=== PATIENT | female | born 1985 | race Caucasian/White ===

== ENCOUNTER 2020-05-07 18:01 | Outpatient (CLI) | payer OTHER, SELFPAY ==
[2020-05-07 18:22] LABS: Basophils Absolute Auto 0.03 K/mm3 (0.00-0.10); Basophils Percent Auto 0.3 % (0.0-1.0); Eosinophils Absolute Auto 0.13 K/mm3 (0.02-0.50); Eosinophils Percent Auto 1.3 % (1.0-6.0); Hematocrit 38.3 % (35.0-49.0); Immature Granulocyte Absolute 0.02 K/mm3 (0.00-0.00); Immature Granulocyte Percent A 0.2 % (0.0-0.0); Lymphocytes Absolute Auto 3.58 K/mm3 (1.10-4.50); Lymphocytes Percent Auto 34.5 % (18.0-42.0); Mean Corpuscular HGB Conc 33.9 g/dL (32.0-36.0); Mean Corpuscular Hemoglobin 29.6 pg (27.0-31.0); Mean Corpuscular Volume 87.2 fL (78.0-102.0); Mean Platelet Volume 10.3 fl (9.2-11.8); Monocytes Absolute Auto 0.68 K/mm3 (0.10-0.90); Monocytes Percent Auto 6.6 % (2.0-11.0); Neutrophils Absolute Auto 5.9 K/mm3 (1.7-7.2); Neutrophils Percent Auto 57.1 % (50.0-70.0); Platelet Count Result 249 K/mm3 (150-420); Red Blood Count 4.39 M/mm3 (4.20-5.40); Red Cell Distribution Width 11.9 % (11.6-14.4); White Blood Count 10.4 K/mm3 (4.8-10.8)
[2020-05-07 19:21] LABS: Alanine Aminotransferase 32 U/L (14-59); Albumin Level 3.7 g/dL (3.4-5.0); Alkaline Phosphatase 58 U/L (46-116); Anion Gap 8 mmol/L (8-16); Aspartate Amino Transferase 12 U/L (15-37); Bilirubin,Total 0.2 mg/dL (0.00-1.00); Blood Urea Nitrogen 17 mg/dL (7-18); Carbon Dioxide 27 mmol/L (21-32); Chloride 102 mmol/L (98-108); Estimated Glomerular Filt Rate 60; Free T3 2.22 pg/mL (2.18-3.98); Free T4 Free Thyroxine 0.94 ng/dL (0.76-1.46); Glucose 101 mg/dL (70-99); Magnesium 2.4 mg/dL (1.8-2.4); Osmolality Calculated 285 mOsm/kg (285-295); Potassium 4.4 mmol/L (3.5-5.1); Sodium 137 mmol/L (136-145); Thyroid Stimulating Hormone 1.09 uIU/mL (0.36-3.74); Total Protein 7.3 g/dL (6.4-8.2)
== END 2020-05-07 18:02 | disposition home or self-care (01) ==
LOC: CHSLAB 18:06
PROVIDERS: PCP Internal Medicine; Visit Provider Internal Medicine
DX: R00.2 Palpitations (principal)
CPT/HCPCS: 36415; 80053; 83735; 84439; 84443; 84481; 85025

== ENCOUNTER 2020-05-09 07:31 | Outpatient (CLI) | payer OTHER, SELFPAY ==
--- NOTE | 2020-05-12 16:12 | WPDHOLTEREM ---
Holter/Event Monitor Holter/Event Monitor Date of procedure: 05/09/20 Procedure Type: 24 hour holter monitor Indications: Palpitations Conclusion: 1. 24 hour holter monitor on 05/09/20. 2. Underlying rhythm is sinus rhythm. HR range 55-154 bpm; average HR 89 bpm. 3. There are 9,774 premature supraventricular complexes, 5 supraventricular couplets, 70 supraventricular bigeminy, 1,621 supraventricular trigeminy. No supraventricular tachycardia. 4. No premature ventricular complexes. No ventricular tachycardia. 5. No sinoatrial or atrioventricular blocks. No significant pauses greater than 2 seconds. 6. Patient reports symptoms of chest pressure which demonstrate sinus rhythm at 90 bpm.
== END 2020-05-09 07:32 | disposition home or self-care (01) ==
LOC: CHSCARD 07:33
PROVIDERS: PCP Internal Medicine; Visit Provider Internal Medicine
DX: R00.2 Palpitations (principal)
CPT/HCPCS: 93225; 93226

== ENCOUNTER 2021-04-07 14:28 | Outpatient (CLI) | payer OTHER, SELFPAY ==
[2021-04-07 14:50] LABS: Basophils Absolute Auto 0.03 K/mm3 (0.00-0.10); Basophils Percent Auto 0.3 % (0.0-1.0); Eosinophils Absolute Auto 0.23 K/mm3 (0.02-0.50); Hematocrit 42.8 % (35.0-49.0); Hemoglobin 14.2 g/dL (12.0-15.0); Immature Granulocyte Absolute 0.03 K/mm3 (0.00-0.00); Immature Granulocyte Percent A 0.3 % (0.0-0.0); Lymphocytes Absolute Auto 3.31 K/mm3 (1.10-4.50); Lymphocytes Percent Auto 29.4 % (18.0-42.0); Mean Corpuscular HGB Conc 33.2 g/dL (32.0-36.0); Mean Corpuscular Hemoglobin 28.7 pg (27.0-31.0); Mean Corpuscular Volume 86.6 fL (78.0-102.0); Mean Platelet Volume 9.9 fl (9.2-11.8); Monocytes Absolute Auto 0.86 K/mm3 (0.10-0.90); Monocytes Percent Auto 7.6 % (2.0-11.0); Neutrophils Absolute Auto 6.8 K/mm3 (1.7-7.2); Neutrophils Percent Auto 60.4 % (50.0-70.0); Platelet Count Result 247 K/mm3 (150-420); Red Blood Count 4.94 M/mm3 (4.20-5.40); Red Cell Distribution Width 11.9 % (11.6-14.4); White Blood Count 11.3 K/mm3 (4.8-10.8)
[2021-04-07 15:46] LABS: Free T4 Free Thyroxine 0.89 ng/dL (0.76-1.46); Magnesium 2.3 mg/dL (1.8-2.4); Thyroid Stimulating Hormone 0.88 uIU/mL (0.36-3.74)
== END 2021-04-07 14:29 | disposition home or self-care (01) ==
LOC: CHSLAB 14:32
PROVIDERS: PCP Internal Medicine; Visit Provider Internal Medicine Cardiovascular Disease
DX: R00.2 Palpitations (principal); I49.1 Atrial premature depolarization
CPT/HCPCS: 36415; 83735; 84439; 84443; 85025

== ENCOUNTER 2021-05-19 15:54 | Outpatient (CLI) | payer OTHER, SELFPAY ==
[2021-05-19 18:07] LABS: Influenza A QL RT-PCR Negative (Negative); Influenza B QL RT-PCR Negative (Negative); SARS-CoV-2 RNA PCR Positive (Negative)
== END 2021-05-19 15:55 | disposition home or self-care (01) ==
LOC: CHSLAB 15:57
PROVIDERS: PCP Internal Medicine; Visit Provider Internal Medicine
DX: U07.1 COVID-19 (principal)
CPT/HCPCS: 87502; C9803; U0003; U0005

== ENCOUNTER 2021-05-29 15:11 | Outpatient (CLI) | payer OTHER, SELFPAY ==
[2021-05-29 15:27] LABS: Basophils Absolute Auto 0.04 K/mm3 (0.00-0.10); Basophils Percent Auto 0.4 % (0.0-1.0); Eosinophils Absolute Auto 0.12 K/mm3 (0.02-0.50); Eosinophils Percent Auto 1.2 % (1.0-6.0); Hematocrit 40.3 % (35.0-49.0); Hemoglobin 13.5 g/dL (12.0-15.0); Immature Granulocyte Absolute 0.02 K/mm3 (0.00-0.00); Immature Granulocyte Percent A 0.2 % (0.0-0.0); Lymphocytes Absolute Auto 3.17 K/mm3 (1.10-4.50); Mean Corpuscular HGB Conc 33.5 g/dL (32.0-36.0); Mean Corpuscular Hemoglobin 28.9 pg (27.0-31.0); Mean Corpuscular Volume 86.3 fL (78.0-102.0); Mean Platelet Volume 9.8 fl (9.2-11.8); Monocytes Percent Auto 7.1 % (2.0-11.0); Neutrophils Absolute Auto 5.9 K/mm3 (1.7-7.2); Neutrophils Percent Auto 59.1 % (50.0-70.0); Platelet Count Result 254 K/mm3 (150-420); Red Blood Count 4.67 M/mm3 (4.20-5.40); Red Cell Distribution Width 12.3 % (11.6-14.4); White Blood Count 9.9 K/mm3 (4.8-10.8)
[2021-05-29 16:23] LABS: Alanine Aminotransferase 54 U/L (14-59); Albumin Level 3.5 g/dL (3.4-5.0); Alkaline Phosphatase 62 U/L (46-116); Anion Gap 12 mmol/L (8-16); Aspartate Amino Transferase 16 U/L (15-37); Bilirubin,Total 0.2 mg/dL (0.00-1.00); Blood Urea Nitrogen 16 mg/dL (7-18); Carbon Dioxide 26 mmol/L (21-32); Chloride 103 mmol/L (98-108); Estimated Glomerular Filt Rate > 60; Glucose 117 mg/dL (70-99); Osmolality Calculated 294 mOsm/kg (285-295); Potassium 4.1 mmol/L (3.5-5.1); Sodium 141 mmol/L (136-145); Total Protein 7.3 g/dL (6.4-8.2)
[2021-05-29 16:53] LABS: Hemoglobin A1C 5.6 % (<5.7)
== END 2021-05-29 15:12 | disposition home or self-care (01) ==
LOC: CHSLAB 15:14
PROVIDERS: PCP Internal Medicine; Visit Provider Internal Medicine
DX: H66.90 Otitis media, unspecified, unspecified ear (principal); R73.01 Impaired fasting glucose
CPT/HCPCS: 36415; 80053; 83036; 85025

== ENCOUNTER 2021-06-26 07:13 | Outpatient (CLI) | payer OTHER, SELFPAY ==
--- NOTE | 2021-06-26 07:40 | ECHO_ITS ---
Patient Info Name: Aide Alves Age: 36 years : 1985 Gender: Female Ht: 65 in Wt: 240 lbs BSA: 2.29 m2 HR: 71 bpm BP: 132 / 83 mmHg Technical Quality: Good Exam Date: 06/26/2021 8:29 AM Exam Location: [facility] Patient Status: Outpatient Admit Date: 06/26/2021 Staff Ordering Physician: Grayson Campbell MD Motocross Racer: Lima Hdez Attending Provider: Grayson Campbell MD Referring Physician: Shannan CASE; Exam Type: CA echo doppler color flow Study Info Indications I49.1 - Atrial premature depolarization Complete two-dimensional, color flow and Doppler transthoracic echocardiogram is performed. Summary 1. Complete two-dimensional, color flow and Doppler transthoracic echocardiogram is performed. 2. Left ventricular chamber dimension is normal. 3. Left ventricular systolic function is normal, estimated at 60-65%. 4. The left ventricular diastolic function is grade I diastolic dysfunction. 5. E/e' 8 is minimally elevated. 6. There is trace mitral valve regurgitation. 7. There is trace tricuspid valve regurgitation. 8. Mild pulmonary hypertension, estimated pulmonary arterial systolic pressure is 40 mmHg. Left Ventricle E/e' 8 is minimally elevated. Left ventricular chamber dimension is normal. Left ventricular systolic function is normal, estimated at 60-65%. The left ventricular diastolic function is grade I diastolic dysfunction. Right Ventricle Right ventricular systolic function is normal and with normal TAPSE 1.9 cm. Right ventricular chamber dimension is normal. Left Atria Left atrial chamber dimension is normal. Right Atria Right atrial chamber dimension is normal. Aortic Valve The aortic valve is trileaflet. There is no aortic valve stenosis. There is no aortic valve regurgitation. Pulmonic Valve There is no pulmonic regurgitation. Mitral Valve There is no mitral valve stenosis. There is trace mitral valve regurgitation. Tricuspid Valve There is trace tricuspid valve regurgitation. Mild pulmonary hypertension, estimated pulmonary arterial systolic pressure is 40 mmHg. Pericardium/Pleural There is no pericardial effusion. Inferior Vena Cava Normal inferior vena cava with >50% collapse upon inspiration consistent with normal right atrial pressure, 5 mmHg. Aorta The aortic root size at the sinus of Valsalva is normal. Left Ventricular Outflow Tract Name Value Normal LVOT 2D LVOT Diameter 1.9 cm LVOT Doppler LVOT Peak Velocity 110 cm/s LVOT Peak Gradient 5 mmHg LVOT Mean Gradient 3 mmHg LVOT VTI 23 cm LVOT VTI/AV VTI Ratio 0.8 LVOT Stroke Volume 67 ml Mitral Valve Name Value Normal MV Doppler MV [place]
== END 2021-06-26 07:14 | disposition home or self-care (01) ==
LOC: CHSIMG 07:18
PROVIDERS: PCP Internal Medicine; Visit Provider Internal Medicine Cardiovascular Disease
DX: I49.1 Atrial premature depolarization (principal); I47.1 Supraventricular tachycardia; Z86.16 Personal history of COVID-19
CPT/HCPCS: 93306

== ENCOUNTER 2023-09-16 08:37 | Outpatient (CLI) | payer OTHER, SELFPAY ==
[2023-09-16 09:14] LABS: Basophils Absolute Auto 0.04 K/mm3 (0.00-0.10); Basophils Percent Auto 0.5 % (0.0-1.0); Eosinophils Absolute Auto 0.25 K/mm3 (0.02-0.50); Eosinophils Percent Auto 3.2 % (1.0-6.0); Hematocrit 41.3 % (35.0-49.0); Hemoglobin 13.9 g/dL (12.0-15.0); Immature Granulocyte Absolute 0.02 K/mm3 (0.00-0.00); Immature Granulocyte Percent A 0.3 % (0.0-0.0); Lymphocytes Absolute Auto 3.23 K/mm3 (1.10-4.50); Lymphocytes Percent Auto 41.1 % (18.0-42.0); Mean Corpuscular HGB Conc 33.7 g/dL (32-36); Mean Corpuscular Hemoglobin 28.5 pg (27.0-31.0); Mean Corpuscular Volume 84.8 fL (78.0-102.0); Mean Platelet Volume 10.1 fl (9.2-11.8); Monocytes Absolute Auto 0.54 K/mm3 (0.10-0.90); Monocytes Percent Auto 6.9 % (2.0-11.0); Neutrophils Absolute Auto 3.78 K/mm3 (1.70-7.20); Platelet Count Result 235 K/mm3 (150-420); Red Blood Count 4.87 M/mm3 (4.20-5.40); Red Cell Distribution Width 12.1 % (11.6-14.4); White Blood Count 7.9 K/mm3 (4.8-10.8)
[2023-09-16 09:42] LABS: Hemoglobin A1C 5.1 % (<5.7)
[2023-09-16 09:43] LABS: Alanine Aminotransferase 48 U/L (14-59); Albumin Level 3.6 g/dL (3.4-5.0); Alkaline Phosphatase 59 U/L (46-116); Anion Gap 10 mmol/L (4-12); Aspartate Amino Transferase 13 U/L (15-37); Bilirubin,Total 0.3 mg/dL (0.00-1.00); Blood Urea Nitrogen 14 mg/dL (7-18); Calcium 8.7 mg/dL (8.5-10.1); Carbon Dioxide 27 mmol/L (21-32); Chloride 104 mmol/L (98-108); Cholesterol 188 mg/dL (0-200); Estimated Glomerular Filt Rate > 60; Glucose 105 mg/dL (70-99); HDL Direct 41 mg/dL (40-60); LDL Cholesterol Calculated 91 mg/dL (<130); Osmolality Calculated 292 mOsm/kg (285-295); Potassium 4.3 mmol/L (3.5-5.1); Sodium 141 mmol/L (136-145); Total Protein 6.8 g/dL (6.4-8.2); Triglycerides 278 mg/dL (0-150)
== END 2023-09-16 08:38 | disposition home or self-care (01) ==
LOC: CHSLAB 08:42
PROVIDERS: PCP Family Medicine; Visit Provider Family Medicine
DX: E11.9 Type 2 diabetes mellitus without complications (principal); I10 Essential (primary) hypertension
CPT/HCPCS: 36415; 80053; 80061; 83036; 85025

== ENCOUNTER 2023-09-21 11:48 | Outpatient (CLI) | payer OTHER, SELFPAY ==
--- NOTE | ~2023-09-21 | MM_ITS ---
EXAMINATION: MM screening gabrielle BI w surekha HISTORY: Screening TECHNIQUE: Craniocaudal and mediolateral oblique 3-D tomosynthesis images were obtained and synthetic 2-D images were generated. CAD analysis was submitted and interpreted. COMPARISON: No prior mammogram is available for comparison at this institution. BREAST PARENCHYMAL COMPOSITION: Not dense: There are scattered areas of fibroglandular density. FINDINGS: There is no evidence of suspicious mass, calcification, or architectural distortion to sugg est malignancy in either breast. There has been no suspicious interval change. IMPRESSION: 1. No mammographic evidence of malignancy. 2. Recommend routine screening mammography in one year. BI-RADS Category 1: Negative Reviewed, dictated and finalized at location B.
== END 2023-09-21 11:49 | disposition home or self-care (01) ==
LOC: CHSIMG 11:49
PROVIDERS: PCP Family Medicine; Visit Provider Family Medicine
DX: Z12.31 Encounter for screening mammogram for malignant neoplasm of breast (principal)
CPT/HCPCS: 77063; 77067

== ENCOUNTER 2024-09-25 08:36 | Outpatient (CLI) | payer OTHER, SELFPAY ==
--- NOTE | ~2024-09-25 | MM_ITS ---
EXAMINATION: MM screening gabrielle BI w surekha HISTORY: Screening TECHNIQUE: Craniocaudal and mediolateral oblique 3-D tomosynthesis images were obtained and synthetic 2-D images were generated. CAD analysis was submitted and interpreted. COMPARISON: No prior mammogram is available for comparison at this institution. BREAST PARENCHYMAL COMPOSITION: Dense: The breasts are extremely dense, which lowers the sensitivity of mammography. FINDINGS: There is no evidence of suspicious mass, calcification, or architectural distortion to sugg est malignancy in either breast. There has been no suspicious interval change. IMPRESSION: 1. No mammographic evidence of malignancy. 2. Recommend routine screening mammography in one year. BI-RADS Category 1: Negative Reviewed, dictated and finalized at location A.
--- OUTSIDE RECORDS SUMMARY | 2024-09-25 08:57 | XMS_ITS | Referral Summary ---
Author Organization [facility] [place] [address] Address [address] [place] [phone] Care Team Providers Care Cartographic Engineer Name Role Phone Mykel Evans Primary Care Provider Allergies Active Allergy Reactions Criticality Noted Date Comments Cefaclor Swelling Medium Metronidazole Hives Medium 02/13/2018 Penicillins Vomiting Low Sulfa (Sulfonamide Antibiotics) Rash Medium Tetanus Vaccines And Toxoid Swelling Medium 12/13/19 19 Medications magnesium gluconate 200 mg tabletIndicatio ns:hypomagnesem ia 1 tablet (200 mg total) Active melatonin 5 mg tablet 12.5mg at bed time Active huwwir-likj-fih a-zflegmn-iknkm 10-50-500-0.5 mg capsule Active ukgev-za-5-dha- bdx-tipeaoo-utd 960-947-39-64 mg capsule Active acidophilus-pec tin, citrus 100 million cell-10 mg capsule Take by mouth Active vitamin D3-vitamin K2 25 mcg (1,000 unit)-90 mcg tablet,disinteg rating Take by mouth Active ywqijhnk04-vhex -Lmfolate-algal 27 mg iron-1.13 mg-581.92 mg capsule Take by mouth Active metoprolol XL (TOPROL-XL) 25 mg extended release tablet Take 1 tablet (25 mg total) by mouth every morning AND 0.5 tablets (12.5 mg total) nightly. 90 tablet 3 03/21/2024 Active Active Problems Problem Noted Date Diagnosed Date HTN (hypertension), benign 10/27/2022 PSVT (paroxysmal supraventricular tachycardia) 0 06/09/2021 History of 2019 novel coronavirus disease (COVID -19) 06/09/2021 Palpitations 04/07/2021 PVC's (premature ventricular contractions) 04/07 Premature atrial contractions 04/07/2021 Morbid obesity with BMI of 40.0-44.9, adult 03/23 YONAS on CPAP 09/29/2018 Chronic fatigue 08/21/2018 Overview (08/21/2018): - Patient called concern for excessive snoring in - Sleep clinic referral placed. Tobacco use affecting , antepartum 05/24 Overview (06/20/2018): --encouraged cessation Maternal obesity affecting , antepartum 06/19/2018 History of infertility 06/19/2018 Supervision of other high risk , antepa rtum 06/19/2018 Overview (07/06/2018): Will return to routine risk care with Dr. Mckoy S/p low risk NIPT, patient aware Elderly multigravida in first trimester 06/15/19 19 Overview (06/20/2018): Ms. Alves and I also discussed advanced maternal age in . We discussed the increased risk for aneuploidy and medical conditions in women with AMA. Later in , maternal age >35 is is associated with a four-fold increase in risk for hypertension and preeclampsia, gestational diabetes, previa, low weight, delivery, delivery, and stillbirth. We reviewed the availability and risks/benefits of genetic screening and testing, including serum screening, cell-free DNA in maternal serum, CVS, and amniocentesis. Ms. Alves stated that she would be interested in cell-free DNA to screen for the common trisomies which will need to be precertified and we are arranging through our office. If this is normal she can return to routine OB care If this is abnormal we will see her for followup and counseling. Recommend 81 mg ASA for preeclampsia prevention Carpal tunnel syndrome 05/26/2015 Social History Tobacco Use Types Packs/Day Years Used Date Smoking Tobacco: Former Cigarettes 1 16 2 001 - 2017 Smokeless Tobacco: Never Tobacco Cessation:Counseling Given: Not Answered Comments:10/cigs per day Alcohol Use Standard Drinks/Week Comments Not Currently 3 (1 standard drink = 0.6 oz pur e alcohol) 2-3 beers per month Personal Safety Answer Date Recorded Getting School Help Needed Not on file 07/01 Comments No Sex and Gender Information Value Date Recorded Sex Assigned at Not on file Legal Sex Female 3:36 AM [employer]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 Gender Identity Female 01/30/2020 6:24 AM CDT Sexual Orientation Straight 01/30/2020 6: 24 AM CDT 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 Not on file Not on file Last Filed Vital Signs Vital Sign Reading Time Taken Comments Blood Pressure 120/76 03/21/2024 9:29 AM CDT Pulse 76 03/21/2024 9:29 AM CDT Temperature 37 C (98.6 F) 12/15/2018 10:51 PM CDT Respiratory Rate 16 02/13/2024 8:33 AM CDT Oxygen Saturation 98% 03/21/2024 9:29 AM CDT Inhaled Oxygen Concentration - - Weight 114.8 kg (253 lb) 03/21/2024 9:29 AM CDT Height 165.1 cm (5' 5 ) 03/21/2024 9:29 AM CDT Body Mass Index 42.1 03/21/2024 9:29 AM CDT Plan of Treatment Not on file Insurance [facility] [address] [facility] [place] [address] Advance Directives For more information, please contact: [phone] * Full Code (Latest Code Status on File) Date Activated Date Inactivated Comments 12/13/2018 9:01 AM 12/16/2018 5:34 AM * Full Code Date Activated Date Inactivated Comments 12/12/2018 6:53 PM 12/13/2018 9:01 AM Full CPR in case of cardiopulmonary arrest Care Teams Cartographic Engineer Relationship Specialty Start Date End Date Mykel Evans DO [address] [place] [address] PCP - General Family Medicine 02/13/24
--- OUTSIDE RECORDS SUMMARY | 2024-09-25 08:57 | XMS_ITS | Clinical Summary ---
Author Organization [facility] [place] [address] Address [address] [place] [id number] Care Team Providers Care Wrap Knitting Machine Operator Name Role Phone Mykel Evans Primary Care Provider Allergies Active Allergy Reactions Criticality Noted Date Comments Cefaclor Swelling Medium Metronidazole Hives Medium 02/13/2018 Penicillins Vomiting Low Sulfa (Sulfonamide Antibiotics) Rash Medium Tetanus Vaccines And Toxoid Swelling Medium 12/13/19 19 Medications magnesium gluconate 200 mg tabletIndicatio ns:hypomagnesem ia 1 tablet (200 mg total) Active melatonin 5 mg tablet 12.5mg at bed time Active yuqpgk-mkks-bna z-fafocou-eumpv 10-50-500-0.5 mg capsule Active tafus-tn-5-dha- hnk-dxvbote-jwq 784-740-83-64 mg capsule Active acidophilus-pec tin, citrus 100 million cell-10 mg capsule Take by mouth Active vitamin D3-vitamin K2 25 mcg (1,000 unit)-90 mcg tablet,disinteg rating Take by mouth Active fqjudxyl34-mckj -Lmfolate-algal 27 mg iron-1.13 mg-581.92 mg capsule [...] for preeclampsia prevention Carpal tunnel syndrome 05/26/2015 Surgical History Surgery Date Site/Laterality Comments OTHER SURGICAL HISTORY lipoma removed-right mastoid ORTHOPEDIC SURGERY TONSILLECTOMY/ADENOIDECTOMY APPENDECTOMY laprascopic 2009 COLPOSCOPY CARPAL TUNNEL RELEASE 05/23/2014 - 06/22/2014 Bilateral LIPOMA RESECTION 05/23/1994 - 05/22/1995 removed from back of head Medical History Medical History Date Comments HPV (human papilloma virus) infection Miscarriage Abnormal Pap smear of cervix sev eral & a colposcopy CTS (carpal tunnel syndrome) had surgery in 2014 Female infertility this pregnanc y is IUI and chlomid Polycystic ovary syndrome Varicella as a child Obesity Sleep apnea Palpitations Family History Medical History Relation Name Comments COPD Father * Sleep apnea Father * No Known Problems Mother Cancer Other 1 Family history of cancer; Heart disease Other 2 Family history of heart problems; Hypertension Other 3 Family history of Hypertension; Lung disease Other 4 Family history of lung problems; Alcohol abuse Other 5 Family history of Alcoholism; Arthritis Other 6 Family history of arthritis; Other Other 7 Family history of thyroid problems; No Known Problems Sister 1 Obesity Sister 2 * Relation Name Status Comments Father * Alive Mother Alive Other 1 Other 2 Other 3 Other 4 Other 5 Other 6 Other 7 Sister 1 Alive Sister 2 * Alive Social History Tobacco Use Types Packs/Day Years Used Date Smoking Tobacco: Former Cigarettes 1 16 2 - 2016 Smokeless Tobacco: Never Tobacco Cessation:Counseling Given: Not [...] on file Legal Sex Female 3:36 AM 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 Gender Identity Female 01/30/2020 6:24 AM CDT Sexual Orientation Straight 01/30/2020 6: 24 AM CDT 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 Last Filed Vital Signs Vital Sign Reading [...] 03/21/2024 9:29 AM CDT Plan of Treatment Health Maintenance Due Date Last Done Comments Breast Cancer Screening-Mammogram 1985 Cervical Cancer Screening 1985 Depression Screening 1985 Hepatitis C Screening 1985 DTaP/Tdap/Td Vaccine (1 - Tdap) 1994 Regular Well Visit/Exam 18-64 2001 Influenza Vaccine (Season Ended) 2025 Hepatitis B Screening Completed 03/17/2004 , 10/02/2003, 09/04/2003 HPV Vaccines Aged Out No longer eligi ble based on patient's age to complete this topic Pneumococcal vaccine <65 Aged Out No longer eligible based on patient's age to complete this topic Insurance [facility] [address] [facility] Advance Directives For more information, please contact: [phone] * Full Code (Latest Code Status on File) Date Activated Date Inactivated Comments 12/13/2018 9:01 AM 12/16/2018 5:34 AM * Full Code Date Activated Date Inactivated Comments 12/12/2018 6:53 PM 12/13/2018 9:01 AM Full CPR in case of cardiopulmonary arrest Care Teams Wrap Knitting Machine Operator Relationship Specialty Start Date End Date Mykel Evans DO [address] [place] [address] PCP - General Family Medicine 02/13/24
--- OUTSIDE RECORDS SUMMARY | 2024-09-25 08:57 | XMS_ITS | Clinical Summary ---
Author Organization [facility] Address [address] [place] [id number] Care Team Providers Care Physical Fitness Trainer Name Role Phone Terrence Deleon MD Primary Care Provider Social History Tobacco Use Types Packs/Day Years Used Date Smoking Tobacco: Never Assessed Comments Unknown Sex and Gender Information Value Date Recorded Sex Assigned at Not on file Legal Sex Female 8:04 PM CDT Gender Identity Not on file Sexual Orientation Not on file Plan of Treatment Health Maintenance Due Date Last Done Comments Cervical Cancer Screening Pa p Smear (Age 30 to 64) Every 3 Years 1985 Annual Physical 1986 Hepatitis C 2001 DTaP, Tdap and Td Vaccines ( 1 - Tdap) 2002 Hepatitis B Vaccines (1 of 3 - 19+ 3-dose series) 2002 Cervical Cancer Screening Pa p with HPV Testing (Age 30 to 64) Every 5 Years 2013 Cervical Cancer Screening wi th HPV 2013 HPV Vaccines (2 - 3-dose SCD M series) 05/26/2021 04/28/2021 Mammogram Screening 2023 COVID-19 Vaccine (2023-2 5 season) 2024 03/31/2021, 06/16/2020, 05/19/2020 Meningococcal B Vaccine Aged Out No l onger eligible based on patient's age to complete this topic Meningococcal Vaccine Aged Out No janis carlos eligible based on patient's age to complete this topic Pneumococcal Vaccine: Pediatrics (0 to 5 Years) and At-Risk Patients (6 to 49 Years) Aged Out No longer eligible b ased on patient's age to complete this topic RSV Immunizations Under 20 Months Aged Out No longer eligible b ased on patient's age to complete this topic Care Teams Physical Fitness Trainer Relationship Specialty [place] [address] [place] [address] [place] [id number] PCP - General FAMILY PRACTICE 10/27/22
== END 2024-09-25 08:37 | disposition home or self-care (01) ==
PROVIDERS: PCP Family Medicine; Visit Provider Obstetrics & Gynecology
DX: Z12.31 Encounter for screening mammogram for malignant neoplasm of breast (principal)
CPT/HCPCS: 77063; 77067

== ENCOUNTER 2025-04-26 08:56 | Outpatient (CLI) | payer OTHER, SELFPAY ==
[2025-04-26 09:11] LABS: Hematocrit 42.5 % (35.0-49.0); Hemoglobin 14.1 g/dL (12.0-15.0); Immature Granulocyte Percent A 0.3 % (0.0-0.0); Lymphocytes Absolute Auto 3.61 K/mm3 (1.10-4.50); Mean Corpuscular HGB Conc 33.2 g/dL (32-36); Mean Corpuscular Hemoglobin 28.3 pg (27.0-31.0); Mean Corpuscular Volume 85.2 fL (78.0-102.0); Nucleated Red Blood Cells Absolute Auto 0.00 K/mm3 (0.00-0.00); Nucleated Red Blood Cells Perc 0.0 % (0-0.0); Platelet Count Result 262 K/mm3 (150-420); Red Blood Count 4.99 M/mm3 (4.20-5.40); White Blood Count 9.6 K/mm3 (4.8-10.8)
[2025-04-26 09:32] LABS: Alanine Aminotransferase 42 U/L (6-35); Albumin Level 4.5 g/dL (3.5-5.1); Alkaline Phosphatase 61 U/L (38-126); Anion Gap 9 mmol/L (4-12); Aspartate Amino Transferase 24 U/L (14-36); Bilirubin,Total 0.2 mg/dL (0.2-1.3); Blood Urea Nitrogen 14 mg/dL (7-17); Calcium 9.1 mg/dL (8.4-10.2); Carbon Dioxide 24 mmol/L (22-30); Chloride 108 mmol/L (98-107); Cholesterol 199 mg/dL (0-200); Estimated Glomerular Filt Rate > 60; Glucose 106 mg/dL (65-110); HDL Direct 49 mg/dL; Osmolality Calculated 292 mOsm/kg (285-295); Potassium 4.2 mmol/L (3.4-5.0); Sodium 141 mmol/L (137-145); Total Protein 7.1 g/dL (6.3-8.2); Triglycerides 268 mg/dL (<150)
[2025-04-26 10:02] LABS: Thyroid Stimulating Hormone Reflex 0.704 uIU/mL (0.465-4.68)
[2025-04-27 07:09] LABS: FSH 8.5 mIU/mL (.); LH 40.7 mIU/mL (.)
[2025-04-28 14:08] LABS: Estrogens, Total 235 pg/mL (.)
[2025-04-29 10:06] LABS: Hepatitis B Surface Antigen Negative (Negative)
[2025-04-29 10:12] LABS: HAV RESULT Negative (Negative); Hepatitis B Core IgM Result Negative (Negative)
== END 2025-04-26 08:57 | disposition home or self-care (01) ==
PROVIDERS: PCP Family Medicine; Visit Provider Family Medicine
DX: Z00.00 Encounter for general adult medical examination without abnormal findings (principal); N92.6 Irregular menstruation, unspecified; E03.9 Hypothyroidism, unspecified
CPT/HCPCS: 36415; 80053; 80061; 80074; 82672; 83001; 83002; 84443; 85025

== ENCOUNTER 2025-05-01 10:32 | Outpatient (CLI) | payer OTHER, SELFPAY ==
--- NOTE | ~2025-05-01 | US_ITS ---
EXAM/PROCEDURE: US pelvic complete w TV HISTORY: N92.6 - Irregular menstruation, unspecified COMPARISON: None available. TECHNIQUE: Pelvic ultrasound performed LMP: April [id number]. FINDINGS: The uterus measures 10.2 x 5.7 x 5.4 cm. Fluid seen within the endometrial canal. Endometrial stripe thickness approximately 1.8 cm Right ovary: 3.2 x 2.3 x 2.8 cm Left ovary: 2.8 x 2.4 x 3.0 cm. Echotexture and vascular flow for both ovaries appear normal. No free fluid seen. IMPRESSION: Abnormally thickened endometrial stripe; upper limits normal for secretory phase of menstrual cycle is 1.5 cm. Findings could represent endometrial hyperplasia but neoplastic process is not excluded. Reviewed, dictated and finalized at location A. AL SERVICE MANAGER IMPRESSION: Abnormally thickened endometrial stripe; upper limits normal for secretory phas e of menstrual cycle is 1.5 cm. Findings could represent endometrial hyperplasi a but neoplastic process is not excluded.
== END 2025-05-01 10:33 | disposition home or self-care (01) ==
LOC: CHSIMG 10:33
PROVIDERS: PCP Family Medicine; Visit Provider Family Medicine
DX: N92.6 Irregular menstruation, unspecified (principal); R93.89 Abnormal findings on diagnostic imaging of other specified body structures
CPT/HCPCS: 76830; 76856